=== PATIENT | male | born 1995 | race Caucasian/White ===

== ENCOUNTER 2016-09-07 12:42 | Emergency (ER) | payer BC ==
[2016-09-07] MEDS ORDERED: Sodium Chloride 0.9% 1,000 ML IV ONE ×2 (12:45→16:38)
[2016-09-07] MEDS ORDERED: Pantoprazole 40 MG Tab.CR PO STA ×2 (12:50→15:22)
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
[2016-09-07] MEDS ORDERED: Sodium Chloride 0.9% 10 ML Syringe FLUSH PRN (15:16)
[2016-09-07 18:51] VITALS: BP 125/85
== END 2016-09-07 18:50 | disposition home or self-care (01) ==
LOC: FB.ED 12:42
DX: E86.0 Dehydration (principal); F15.10 Other stimulant abuse, uncomplicated; F12.10 Cannabis abuse, uncomplicated; Z79.899 Other long term (current) drug therapy
CPT/HCPCS: 36415; 80048; 80305; 81001; 83605; 85025; 96360; 96361; 99285; A9270; G0480; J7040; J7050

== ENCOUNTER 2017-04-13 00:50 | Emergency (ER) | payer BC ==
[2017-04-13] MEDS ORDERED: Cephalexin 500 MG Cap PO ONE (01:02)
[2017-04-13] MEDS ORDERED: Ibuprofen 600 MG Tab PO ONE (01:02)
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
[2017-04-13 01:29] VITALS: BP 121/66
== END 2017-04-13 01:45 | disposition home or self-care (01) ==
LOC: FB.ED 00:50
DX: H72.91 Unspecified perforation of tympanic membrane, right ear (principal); F32.9 Major depressive disorder, single episode, unspecified; Z79.899 Other long term (current) drug therapy
CPT/HCPCS: 99283; A9270